=== PATIENT | female | born 1995 | race Caucasian/White ===

== ENCOUNTER 2019-12-26 07:04 | Outpatient (CLI) | payer OTHER ==
--- NOTE | 2019-12-26 07:55 | ULT ---
GALLBLADDER ULTRASOUND: HISTORY: Epigastric pain. FINDINGS: Liver echogenicity is unremarkable. The gallbladder demonstrates no evidence of gallstones, wall thi ckening, edema, or pericholecystic fluid. The common bile duct is 0.2 cm. Visualized pancreas and r ight kidney are unremarkable. IMPRESSION: Unremarkable right upper quadrant ultrasound. No evidence of gallstones or other acute process. POS: RRE
== END 2019-12-26 07:05 | disposition home or self-care (01) ==
LOC: BICULT 07:04
PROVIDERS: ATTEND Internal Medicine Gastroenterology
DX: R10.13 Epigastric pain (principal)
CPT/HCPCS: 76705